=== PATIENT | female | born 1980 | race African-American/Black ===

== ENCOUNTER → 2025-01-23 14:18 | Outpatient (REF) | payer OTHER, SELFPAY | LOC: HWRAD 14:18 | PROVIDERS: FAMILY PHYSICIAN Family Medicine; PRIMARYCARE PHYSICIAN Emergency Medicine | DX: R22.9 Localized swelling, mass and lump, unspecified (principal); I10 Essential (primary) hypertension | CPT/HCPCS: 76604; 93975 ==

== ENCOUNTER → 2025-03-13 11:01 | Outpatient (REF) | payer OTHER, SELFPAY | LOC: HWRAD 11:01 | DX: M54.2 Cervicalgia (principal) | CPT/HCPCS: 72052 ==